=== PATIENT | male | born 1975 | race African-American/Black ===

== ENCOUNTER 2023-09-30 23:24 | Emergency (ER) | payer OTHER ==
[2023-09-30] MEDS ORDERED: Ketorolac Tromethamine 30 MG (1 mL) VIAL ONE (23:49)
[2023-09-30] MEDS ORDERED: Prochlorperazine 10 MG/2 ML VIAL ONE (23:49)
[2023-09-30] MEDS ORDERED: diphenhydrAMINE 50 MG/ML VIAL ONE (23:59)
== END 2023-10-01 01:47 | disposition home or self-care (01) ==
LOC: ERS 23:24
DX: G43.909 Migraine, unspecified, not intractable, without status migrainosus (principal); F17.210 Nicotine dependence, cigarettes, uncomplicated
CPT/HCPCS: 70450; 96374; 96375; J0780; J1200; J1885